=== PATIENT | female | born 1955 | race Caucasian/White ===

== ENCOUNTER 2021-03-18 11:31 | Observation (INO) | payer OTHER ==
[~2021-03-18] VITALS: Ht 162.6 cm; Wt 71.2 kg
[2021-03-18 11:45] VITALS: BP 138/87
--- NOTE | 2021-03-18 11:49 | NUR ---
PT AMBULATED TO ER BED 11.
--- NOTE | 2021-03-18 11:51 | NUR ---
65 Y/O FEMALE C/O CHEST PAIN 8 DESCRIBES PRESSURE RADIATES TO LEFT ARM XSINCE THURSDAY, INTERMITENT. PT STATES SHE TOOK IBUPROFEN WITH SOME RELIEF. DENIES FEVER/CHILLS. +N/-V. PT STATES 01/01 NUMBESSS CHEST PAIN. LUNG SOUNDS CLEAR. SKIN WARM AND DRY. PMH: HTN, HLD NKA
--- NOTE | 2021-03-18 12:00 | NUR ---
ERMD AT BEDSIDE EXAMINING PT
--- NOTE | 2021-03-18 12:12 | NUR ---
per ermd 12 lead was done on pt and came back sinus tachycardia at 102 hr.
--- NOTE | 2021-03-18 12:14 | NUR ---
OBTAINED CT CONSENT PLACED IN PT CHART.
--- NOTE | 2021-03-18 12:14 | NUR ---
PT TAKEN TO CT VIA RJOSE.
--- NOTE | 2021-03-18 12:14 | NUR ---
PT TAKEN TO CT SCAN VIA BENITO
[2021-03-18 12:20] LABS: BASOPHILS % (AUTO) 0.5 % (0.0-2.0); EOSINOPHILS % (AUTO) 0.1 % (0.0-4.0); HEMATOCRIT 40.9 % (36-48); HEMOGLOBIN 13.8 g/dL (12.0-16.0); LYMPHOCYTES # (AUTO) 1.3 K/uL (2.5-16.5); LYMPHOCYTES % (AUTO) 16.9 % (20.5-51.1); MEAN CORPUSCULAR HEMOGLOBIN 32 pg (27-31); MEAN CORPUSCULAR HGB CONC 34 g/dL (33-37); MEAN CORPUSCULAR VOLUME 96.1 fL (80-94); MONOCYTES # (AUTO) 0.4 K/uL (0.8-1.0); MONOCYTES % (AUTO) 5.2 % (1.7-9.3); NEUTROPHILS # (AUTO) 5.8 K/uL (1.8-7.7); NEUTROPHILS % (AUTO) 77.3 % (42.2-75.2); PLATELET COUNT (AUTO) 327 K/uL (140-450); RED BLOOD CELL COUNT(AUTO) 4.26 MIL/uL (4.20-5.40); RED CELL DISTRIBUTION WIDTH 12.7 % (11.6-13.7); WHITE BLOOD COUNT (AUTO) 7.5 K/uL (4.8-10.8)
--- NOTE | 2021-03-18 12:25 | NUR ---
PT RETURNED FROM CT
[2021-03-18 12:35] LABS: PROTHROMBIN TIME 10.7 secs (10.8-13.4)
--- NOTE | 2021-03-18 12:35 | NUR ---
XRAY AT BEDSIDE
[2021-03-18 12:39] LABS: ALBUMIN 4.3 g/dL (3.4-5.0); ANION GAP 18.7 (8-16); CARBON DIOXIDE 21.7 mmol/L (21-32); CREATININE 0.9 mg/dL (0.6-1.3); POTASSIUM 3.4 mmol/L (3.5-5.1)
[2021-03-18] MEDS ORDERED: NITROGLYCERIN 0.4 MG TAB SL ONE ×2 (13:14→13:15)
[2021-03-18] MEDS ORDERED: ASPIRIN 81 MG TAB.CHEW PO ONE (13:15)
--- NOTE | 2021-03-18 13:15 | NUR ---
GAVE 1ST NITRO SL PER MD ORDER. HR 92, BP 115/75. WILL CONTINUE TO MONITOR.
--- NOTE | 2021-03-18 13:24 | NUR ---
BOB JACKMAN MD MADE AWARE. HR 110, BP 94/58
[2021-03-18] MEDS ORDERED: MAGNESIUM OXIDE 400 MG TAB PO PRN (14:20)
[2021-03-18] MEDS ORDERED: ONDANSETRON 4 MG/2 ML VIAL IVP PRN (14:20)
[2021-03-18] MEDS ORDERED: POTASSIUM CHLORIDE 10 MEQ TABER PO PRN (14:20)
[2021-03-18] MEDS ORDERED: ACETAMINOPHEN 325 MG TAB PO PRN (14:20)
[2021-03-18] MEDS ORDERED: MORPHINE SULFATE 4 MG/ML SYR IVP PRN (14:20)
--- NOTE | 2021-03-18 14:36 | NUR ---
DR CHINCHILLA AT BEDSIDE EXAMINING PT
[2021-03-18] MEDS: NACL 0.9% 1,000 ML IV SCH (14:39)
[2021-03-18] MEDS: HYDROcodone/APAP 5/325 MG 1 TAB TAB PO PRN (16:06)
--- NOTE | 2021-03-18 16:44 | NUR ---
PT AMBULATED TO RESTROOM STEADY GAIT
--- NOTE | 2021-03-18 19:09 | NUR ---
Pt report given to ADITYA CURRY. Transfer of care at this time.
--- NOTE | 2021-03-18 19:12 | NUR ---
Report received from ANTOINETTE Gilmore for continuation of care
--- NOTE | 2021-03-18 19:15 | NUR ---
PT RESTING IN BED, LOCKED AND IN LOWEST POSITION, HOB ELEVATED, SIDE RAIL X 2 FOR PT SAFETY. A/O X 4 , RR EVEN AND UNLABORED. CAP REFIL < 3 SEC. NSR ON SOFTWARE INTEGRATION DEVELOPER. +BL RADIAL PULSES. PT STATES MINIMAL PAIN AT THIS TIME BUT WILL LET ME KNOW WHEN SHE WOULD LIKE PAIN MEDICATION. VSS. NO ACUTE DISTRESS NOTED.
--- NOTE | 2021-03-18 19:40 | NUR ---
PT C/O 10/10 ABD PAIN AND 7/10 LEFT ARM PAIN , WILL REVIEW PRN FOR PAIN MEDICATIONS.
--- NOTE | 2021-03-18 20:44 | NUR ---
TRIED CALLING TO PROVIDE REPORT PER SHANNAN CALL BACK IN 5 MINUTES .
--- NOTE | 2021-03-18 20:55 | NUR ---
Patient will be admitted to care of Dr. Haro. Admited to Telemetry. Will go to room 120B. Belongings list completed. Report to ANTOINETTE Norman.
--- NOTE | 2021-03-18 21:12 | NUR ---
PT TAKEN TO ROOM 120 B VIA GURNEY WITH RN AND [facility] TRANSPORT.
--- NOTE | 2021-03-18 21:15 | NUR ---
PATIENT WAS BROUGHT TO [facility]ST UNIT FROM ER VIA GURNEY AWAKE, ALERT ORIENTED X4, CC: CHEST PAIN SINCE THURSDAY. NO S/S OF RESPIRATORY DISTRESS. LUNGS CLEAR UPON AUSCULTATION. BOWEL SOUNDS PRESENT IN ALL 4 QUADRANT. ALL SAFETY PRECAUTIONS ARE IN PLACE. MRSA SCREENING DONE. CALL LIGHT WITHIN REACH. WILL CONTINUE TO MONITOR.
[2021-03-19] VITALS: BP 102/55
--- NOTE | 2021-03-19 02:30 | NUR ---
ROUNDED PATIENT, PT IS ASLEEP. BREATHING REGULAR UNLABORED. CALL LIGHT WITHIN REACH. ALL SAFETY PRECAUTIONS ARE IN PLACE.
[2021-03-19] MEDS: HYDROcodone/APAP 5/325 MG 1 TAB TAB PO PRN (02:43)
[2021-03-19] MEDS: NACL 0.9% 1,000 ML IV SCH (02:48)
[2021-03-19 04:00] VITALS: BP 114/66
[2021-03-19 06:20] LABS: BASOPHILS % (AUTO) 0.7 % (0.0-2.0); EOSINOPHILS # (AUTO) 0.1 K/uL (0-0.4); EOSINOPHILS % (AUTO) 1.2 % (0.0-4.0); HEMATOCRIT 35.2 % (36-48); HEMOGLOBIN 11.9 g/dL (12.0-16.0); LYMPHOCYTES # (AUTO) 2.3 K/uL (2.5-16.5); LYMPHOCYTES % (AUTO) 32.6 % (20.5-51.1); MEAN CORPUSCULAR HEMOGLOBIN 33 pg (27-31); MEAN CORPUSCULAR HGB CONC 34 g/dL (33-37); MEAN CORPUSCULAR VOLUME 96.7 fL (80-94); MONOCYTES # (AUTO) 0.6 K/uL (0.8-1.0); NEUTROPHILS % (AUTO) 57.5 % (42.2-75.2); PLATELET COUNT (AUTO) 280 K/uL (140-450); RED BLOOD CELL COUNT(AUTO) 3.64 MIL/uL (4.20-5.40); RED CELL DISTRIBUTION WIDTH 12.7 % (11.6-13.7)
[2021-03-19 06:45] LABS: ANION GAP 14.1 (8-16); CARBON DIOXIDE 23.3 mmol/L (21-32); CREATININE 0.8 mg/dL (0.6-1.3); POTASSIUM 3.4 mmol/L (3.5-5.1)
--- NOTE | 2021-03-19 07:30 | NUR ---
ENDORSED TO AM NURSE FOR CONTINUITY OF CARE. PATIENT IS IN STABLE CONDITION.
--- NOTE | 2021-03-19 07:50 | NUR ---
Patient awake, alert and oriented. Able to verbalize needs. Patient has a fever 100.3 and was given Tylenol as ordered. Potassium at 3.4 and was replaced.
[2021-03-19 08:00] VITALS: BP 129/80
[2021-03-19] MEDS ORDERED: FAMOTIDINE 20 MG TAB PO SCH (09:00)
[2021-03-19] MEDS ORDERED: FAMO20TA13 PO (09:05)
[2021-03-19] MEDS ORDERED: SERT25TA PO (09:05)
--- NOTE | 2021-03-19 10:13 | NUR ---
PATIENT HAS BEEN SCREENED AND CATEGORIZED LOW NUTRITION RISK. PATIENT WILL BE SEEN WITHIN 7 DAYS OF ADMISSION. 03/25/[address]
[2021-03-19 10:44] VITALS: BP 126/82
--- NOTE | 2021-03-19 12:04 | NUR ---
Patient discharged and was given education on medications, disease process and all questions regarding discharge answered. Taken off the unit in wheeled chair.
--- NOTE | 2021-03-19 16:31 | NUR ---
DC PLANNING: LATE ENTRY-THE PATIENT ADMITTED THROUGH THE ED WITH C/O CHEST PAIN WHICH RADIATED TO HER RIGHT ARM, PATIENT STATES IT WAS GETTING PROGRESSIVELY WORSE. TROPONINS AND EKG NEGATIVE, PATIENT STATES THAT SHE HAD ANXIETY AND DEPRESSION, S/S SUSPICIOUS FOR GERD. PATIENT MONITORED AND PLACED ON PEPCID AND ZOFRAN, IVF'S. PATIENT DC'D TO HOME, CM TO FOLLOW NEEDED.
== END 2021-03-19 11:50 | disposition home or self-care (01) ==
LOC: MED 11:31 → MTU 14:20
PROVIDERS: ADMIT Student in an Organized Health Care Education/Training Program; ATTEND Student in an Organized Health Care Education/Training Program
DX: R07.89 Other chest pain (principal); K21.9 Gastro-esophageal reflux disease without esophagitis; F41.8 Other specified anxiety disorders; R00.0 Tachycardia, unspecified; M17.11 Unilateral primary osteoarthritis, right knee; I10 Essential (primary) hypertension; Z96.651 Presence of right artificial knee joint; Z79.899 Other long term (current) drug therapy
CPT/HCPCS: 36415; 71045; 71275; 74174; 80048; 80053; 83880; 84484; 85025; 85379; 85610; 85730; 87081; 93005; 96361; 96374; 99285; G0378; J2270; Q0092; Q9967

== ENCOUNTER 2023-01-16 00:35 | Emergency (ER) | payer OTHER ==
[~2023-01-16] VITALS: Ht 160 cm; Wt 71.7 kg
[~2023-01-16 00:35] MED LIST: FAMO20TA13 PO; SERT25TA PO
[2023-01-16 00:40] VITALS: BP 122/90; PULSE 62; RESP 17; TEMP 98; O2SAT 97
[2023-01-16 01:01] VITALS: BP 172/84; PULSE 63; RESP 19
[2023-01-16 01:03] VITALS: O2SAT 99
[2023-01-16 01:43] LABS: BASOPHILS # (AUTO) 0.1 K/uL (0.00-0.22); EOSINOPHILS # (AUTO) 0.2 K/uL (0-0.4); EOSINOPHILS % (AUTO) 2.7 % (0.0-4.0); HEMOGLOBIN 11.7 g/dL (12.0-16.0); LYMPHOCYTES # (AUTO) 2.9 K/uL (2.5-16.5); LYMPHOCYTES % (AUTO) 43.6 % (20.5-51.1); MEAN CORPUSCULAR HEMOGLOBIN 33 pg (27-31); MEAN CORPUSCULAR HGB CONC 34 g/dL (33-37); MEAN CORPUSCULAR VOLUME 94.4 fL (80-94); MONOCYTES # (AUTO) 0.6 K/uL (0.8-1.0); MONOCYTES % (AUTO) 8.7 % (1.7-9.3); NEUTROPHILS # (AUTO) 2.9 K/uL (1.8-7.7); PLATELET COUNT (AUTO) 224 K/uL (140-450); RED BLOOD CELL COUNT(AUTO) 3.61 MIL/uL (4.20-5.40); RED CELL DISTRIBUTION WIDTH 12.9 % (11.6-13.7); WHITE BLOOD COUNT (AUTO) 6.6 K/uL (4.8-10.8)
[2023-01-16 01:50] LABS: ALBUMIN 3.6 g/dL (3.4-5.0); ANION GAP 9.5 (8-16); CALCIUM 8.6 mg/dL (8.5-10.1); CHLORIDE 104 mmol/L (98-107); CREATININE 0.8 mg/dL (0.6-1.3); GFR ARICAN-AMERICAN 93 mL/min (>90); GFR NON ARICAN-AMERICAN 77 mL/min (>90); GLUCOSE 106 mg/dL (74-106); POTASSIUM 3.5 mmol/L (3.5-5.1); SODIUM SERUM 141 mmol/L (136-145); UREA NITROGEN, BLOOD 15 mg/dL (7-18)
[2023-01-16 02:10] LABS: APPEARANCE,URINE CLEAR (CLEAR); BILIRUBIN,URINE NEGATIVE (NEGATIVE); BLOOD, URINE 1+ (NEGATIVE); COLOR,URINE YELLOW (YELLOW); LEUKOCYTE ESTERASE ,URINE TRACE (NEGATIVE); NITRITE, URINE NEGATIVE (NEGATIVE); PH,URINE 5.5 (5.0-9.0); PROTEIN,URINE 1+ (NEGATIVE); UGLUCOSE NEGATIVE (NEGATIVE); UROBILINOGEN,URINE 0.2 EU/dL (0.2 - 1)
[2023-01-16 02:11] LABS: ALANINE AMINOTRANSFERASE 24 U/L (12-78); ALKALINE PHOSPHATASE 106 U/L (50-136); ASPARTATE AMINOTRANSFERASE 23 U/L (15-37); TOTAL BILIRUBIN 0.3 mg/dL (0.0-1.0); TOTAL PROTEIN, SERUM 7.2 g/dL (6.4-8.2)
[2023-01-16 02:36] LABS: RBC,URINE 0-5 /HPF (0-5)
[2023-01-16 02:37] LABS: BACTERIA,URINE >30 (MANY) /HPF (None Seen); MUCUS,URINE 1+ /LPF (None Seen); SQUAMOUS EPITHELIAL CELL,UR 0-3 (FEW) /LPF (0-3 (FEW)); WBC,URINE TOO MANY TO COUNT /HPF (0-5)
[2023-01-16] MEDS ORDERED: CEPH500C16 PO (03:21)
== END 2023-01-16 03:41 | disposition home or self-care (01) ==
LOC: MED 00:35
DX: R07.89 Other chest pain (principal); R20.2 Paresthesia of skin; N39.0 Urinary tract infection, site not specified; G45.9 Transient cerebral ischemic attack, unspecified; I10 Essential (primary) hypertension; Z79.899 Other long term (current) drug therapy
CPT/HCPCS: 36415; 70450; 70496; 70498; 71045; 80053; 81001; 84484; 85025; 87086; 93005; 99285; Q9967

== ENCOUNTER 2023-06-13 18:04 | Emergency (ER) | payer OTHER ==
[~2023-06-13] VITALS: Ht 152.4 cm; Wt 73.5 kg
[~2023-06-13 18:04] MED LIST changes: +CEPH500C16 PO
[2023-06-13 18:07] VITALS: BP 164/80; PULSE 66; RESP 16; TEMP 97.3; O2SAT 97
[2023-06-13] MEDS ORDERED: KETOROLAC 60 MG/2 ML VIAL IM ONE (18:25)
[2023-06-13] MEDS ORDERED: PRED20TA5 PO (18:29)
[2023-06-13] MEDS ORDERED: ACET-503 PO (18:29)
[2023-06-13] MEDS ORDERED: DIPH25TA53 PO (18:29)
[2023-06-13 18:44] VITALS: BP 151/78; PULSE 70; RESP 16; TEMP 98; O2SAT 98
== END 2023-06-13 18:44 | disposition home or self-care (01) ==
LOC: MED 18:04
DX: R21 Rash and other nonspecific skin eruption (principal); M25.561 Pain in right knee; M79.621 Pain in right upper arm; I10 Essential (primary) hypertension; Z90.49 Acquired absence of other specified parts of digestive tract; Z98.890 Other specified postprocedural states; Z79.899 Other long term (current) drug therapy; Z79.2 Long term (current) use of antibiotics
CPT/HCPCS: 96372; 99283; J1885